=== PATIENT | female | born 1935 | race Caucasian/White ===

== ENCOUNTER 2017-06-26 00:07 | Inpatient (IN) | payer MEDICARE ==
[~2017-06-26] VITALS: Ht 167.6 cm; Wt 76.6 kg
[~2017-06-26 00:07] MED LIST: LEVO50TA PO; TRAM50TA2 PO
[2017-06-26] MEDS ORDERED: MORPHINE SULFATE 4 MG/ML, 1ML IVPush PRN (01:30)
[2017-06-26] MEDS ORDERED: ONDANSETRON 2MG/ML, 2ML IVPush ONE (01:30)
[2017-06-26] MEDS ORDERED: SODIUM CHLORIDE FLUSH 10ML SYR IVF ONE (01:30)
[2017-06-26] MEDS ORDERED: SODIUM CHLORIDE 0.9% 1,000ML IVBOLUS ONE (01:30)
[2017-06-26] MEDS ORDERED: morphine SULFATE 10 MG/ML, 1ML ONE (01:34)
[2017-06-26] MEDS ORDERED: ONDANSETRON 2MG/ML, 2ML ONE (01:34)
[2017-06-26 01:42] LABS: HEMATOCRIT 43.4 % (34.6-47.8); HEMOGLOBIN 14.4 g/dL (11.7-16.4)
[2017-06-26] MEDS ORDERED: CLIN300C8 PO (01:47)
[2017-06-26 01:53] LABS: BLOOD UREA NITROGEN 15 mg/dL (7-18)
[2017-06-26 01:56] LABS: ASPARTATE AMINO TRANSFERASE 25 U/L (15-37)
[2017-06-26] MEDS ORDERED: OMNIPAQUE 350 MG/ML, 100ML BOTTLE ONE (02:14)
[2017-06-26] MEDS ORDERED: CEFTRIAXONE PMX 1GM/50ML 50 ML IV ONE (02:30)
[2017-06-26] MEDS ORDERED: CEFTRIAXONE PMX 1GM/50ML 50 ML ONE (02:44)
[2017-06-26 03:55] VITALS: BP 152/85
[2017-06-26] MEDS ORDERED: PROMETHAZINE 25 MG/ML, 1ML IM PRN (05:30)
[2017-06-26] MEDS ORDERED: ONDANSETRON 2MG/ML, 2ML IVPush PRN (05:30)
[2017-06-26] MEDS ORDERED: METOCLOPRAMIDE 5 MG/ML, 2ML IVPush PRN (05:30)
[2017-06-26] MEDS: SODIUM CHLORIDE 0.9% 1,000 ML IV SCH ×2 (05:45→12:35)
[2017-06-26] MEDS: morphine SULFATE 10 MG/ML, 1ML IVPush PRN ×3 (05:45→19:19)
[2017-06-26 09:00] VITALS: BP 125/77
[2017-06-26] MEDS: LEVOTHYROXINE 100 MCG INJ IVPush SCH (10:27)
[2017-06-26] MEDS: ENOXAPARIN 40 MG/0.4 ML SQ SCH (10:27)
[2017-06-26] MEDS: BISACODYL 10 MG SUPP PR SCH (10:27)
[2017-06-26 12:58] VITALS: BP 126/77
[2017-06-26] MEDS: D5%-LACTATED RINGERS 1,000 ML IV SCH ×2 (14:00→21:25)
[2017-06-26 20:22] VITALS: BP 144/80
[2017-06-26] MEDS: FAMOTIDINE 20 MG/2 ML IVPush SCH (20:47)
[2017-06-27 03:23] VITALS: BP 130/79
[2017-06-27] MEDS: CEFTRIAXONE PMX 1GM/50ML 50 ML IV SCH (04:01)
[2017-06-27] MEDS: D5%-LACTATED RINGERS 1,000 ML IV SCH ×2 (04:11→19:47)
[2017-06-27 04:27] LABS: HEMATOCRIT 36.9 % (34.6-47.8); HEMOGLOBIN 12.2 g/dL (11.7-16.4); WHITE BLOOD COUNT 4.3 x10^3/uL (3.4-10)
[2017-06-27 04:35] LABS: ASPARTATE AMINO TRANSFERASE 22 U/L (15-37); BLOOD UREA NITROGEN 7 mg/dL (7-18)
[2017-06-27 07:35] VITALS: BP 146/79
[2017-06-27] MEDS: ENOXAPARIN 40 MG/0.4 ML SQ SCH (08:51)
[2017-06-27] MEDS: FAMOTIDINE 20 MG/2 ML IVPush SCH (08:51)
[2017-06-27] MEDS: BISACODYL 10 MG SUPP PR SCH (08:52)
[2017-06-27] MEDS: LEVOTHYROXINE 100 MCG INJ IVPush SCH (08:52)
[2017-06-27 13:02] VITALS: BP 118/75
[2017-06-27 19:04] VITALS: BP 135/64
[2017-06-27] MEDS: morphine SULFATE 10 MG/ML, 1ML IVPush PRN (19:47)
[2017-06-28] MEDS: D5%-LACTATED RINGERS 1,000 ML IV SCH ×2 (01:18→13:20)
[2017-06-28 01:22] VITALS: BP 144/82
[2017-06-28] MEDS: CEFTRIAXONE PMX 1GM/50ML 50 ML IV SCH (03:00)
[2017-06-28 04:21] LABS: HEMATOCRIT 35.5 % (34.6-47.8)
[2017-06-28 04:30] LABS: BLOOD UREA NITROGEN 8 mg/dL (7-18)
[2017-06-28 07:07] VITALS: BP 149/70
[2017-06-28] MEDS: FAMOTIDINE 20 MG/2 ML IVPush SCH (10:39)
[2017-06-28] MEDS: ENOXAPARIN 40 MG/0.4 ML SQ SCH (10:40)
[2017-06-28] MEDS: LEVOTHYROXINE 100 MCG INJ IVPush SCH (10:40)
[2017-06-28] MEDS: BISACODYL 10 MG SUPP PR SCH (10:43)
[2017-06-28 12:34] VITALS: BP 127/75
[2017-06-28] MEDS: ERTAPENEM 1 GM in SODIUM CHLORIDE 0.9% 50 ML IV SCH (13:20)
[2017-06-28 19:57] VITALS: BP 165/90
[2017-06-28] MEDS: morphine SULFATE 10 MG/ML, 1ML IVPush PRN (21:34)
[2017-06-29 00:50] VITALS: BP 163/91
[2017-06-29] MEDS: D5%-LACTATED RINGERS 1,000 ML IV SCH (02:43)
[2017-06-29 05:09] LABS: HEMATOCRIT 34.9 % (34.6-47.8); HEMOGLOBIN 11.8 g/dL (11.7-16.4); WHITE BLOOD COUNT 5.9 x10^3/uL (3.4-10)
[2017-06-29 05:16] LABS: BLOOD UREA NITROGEN 6 mg/dL (7-18)
[2017-06-29] MEDS: BISACODYL 10 MG SUPP PR SCH (09:00)
[2017-06-29 09:47] VITALS: BP 175/82
[2017-06-29] MEDS: FAMOTIDINE 20 MG/2 ML IVPush SCH (10:46)
[2017-06-29] MEDS: LEVOTHYROXINE 100 MCG INJ IVPush SCH (10:46)
[2017-06-29] MEDS: ENOXAPARIN 40 MG/0.4 ML SQ SCH (10:47)
[2017-06-29] MEDS: ERTAPENEM 1 GM in SODIUM CHLORIDE 0.9% 50 ML IV SCH (10:48)
[2017-06-29 16:26] VITALS: BP 144/80
[2017-06-29] MEDS ORDERED: POTASSIUM CHLORIDE 20 MEQ TAB.ER.PRT PO ONE (17:30)
[2017-06-29 20:20] VITALS: BP 152/72
[2017-06-30 02:10] VITALS: BP 158/83
[2017-06-30 04:40] LABS: HEMOGLOBIN 12.3 g/dL (11.7-16.4); WHITE BLOOD COUNT 5.5 x10^3/uL (3.4-10)
[2017-06-30 04:46] LABS: BLOOD UREA NITROGEN 7 mg/dL (7-18)
[2017-06-30 07:14] VITALS: BP 146/82
[2017-06-30] MEDS: BISACODYL 10 MG SUPP PR SCH (09:00)
[2017-06-30] MEDS: FAMOTIDINE 20 MG/2 ML IVPush SCH (09:53)
[2017-06-30] MEDS: LEVOTHYROXINE 100 MCG INJ IVPush SCH (09:53)
[2017-06-30] MEDS: ENOXAPARIN 40 MG/0.4 ML SQ SCH (09:53)
[2017-06-30] MEDS: ERTAPENEM 1 GM in SODIUM CHLORIDE 0.9% 50 ML IV SCH (12:49)
[2017-06-30 14:08] VITALS: BP 157/70
[2017-06-30] MEDS: morphine SULFATE 10 MG/ML, 1ML IVPush PRN (19:59)
[2017-06-30 20:00] VITALS: BP 149/71
[2017-07-01 02:00] VITALS: BP 137/66
[2017-07-01 04:51] LABS: HEMATOCRIT 36.4 % (34.6-47.8); HEMOGLOBIN 12.2 g/dL (11.7-16.4); WHITE BLOOD COUNT 5.3 x10^3/uL (3.4-10)
[2017-07-01 04:56] LABS: BLOOD UREA NITROGEN 9 mg/dL (7-18)
[2017-07-01 06:35] VITALS: BP 148/78
[2017-07-01] MEDS: BISACODYL 10 MG SUPP PR SCH (09:00)
[2017-07-01] MEDS: ENOXAPARIN 40 MG/0.4 ML SQ SCH (09:09)
[2017-07-01] MEDS: LEVOTHYROXINE 100 MCG INJ IVPush SCH (09:09)
[2017-07-01] MEDS: FAMOTIDINE 20 MG/2 ML IVPush SCH (09:09)
[2017-07-01] MEDS: ERTAPENEM 1 GM in SODIUM CHLORIDE 0.9% 50 ML IV SCH (11:56)
[2017-07-01 12:30] VITALS: BP 120/62
== END 2017-07-01 13:00 | disposition home or self-care (01) | DRG 389 ==
LOC: ED 01:18 → EDIP 02:52 → 3NW 03:53
PROVIDERS: ADMIT Internal Medicine; ATTEND Internal Medicine
DX: K56.7 Ileus, unspecified (principal); N39.0 Urinary tract infection, site not specified; R78.81 Bacteremia; K56.51 Intestinal adhesions [bands], with partial obstruction; E03.9 Hypothyroidism, unspecified; I10 Essential (primary) hypertension; Z88.0 Allergy status to penicillin; Z16.12 Extended spectrum beta lactamase (ESBL) resistance; Z90.710 Acquired absence of both cervix and uterus
CPT/HCPCS: 36415; 71010; 74000; 74177; 80048; 80053; 81001; 81003; 83690; 85025; 87077; 87086; 87186; 96365; 96374; 96375; J0696; J1335; J1650; J2405; Q9967; J2270; J7030; J7121; S0028

== ENCOUNTER 2017-08-15 05:09 | Day surgery (SDC) | payer MEDICARE ==
[~2017-08-15] VITALS: Ht 167.6 cm; Wt 73.5 kg
[~2017-08-15 05:09] MED LIST changes: +CLIN300C8 PO
[2017-08-15] MEDS ORDERED: LACTATED RINGERS 1,000 ML IV SCH (06:07)
[2017-08-15 06:08] VITALS: BP 144/82
[2017-08-15] MEDS ORDERED: EPINEPHRINE 1 MG/ML, 1ML ONE (06:13)
[2017-08-15] MEDS ORDERED: BUPIVACAINE/PF 0.5% ONE (06:13)
[2017-08-15] MEDS ORDERED: EPINEPHRINE TOPICAL SOLN 1 MG/ML, 30ML ONE (06:13)
[2017-08-15] MEDS ORDERED: LIDOCAINE GEL 2%, 5ML ONE (06:47)
[2017-08-15] MEDS ORDERED: FENTANYL PF 100 MCG/2ML ONE ×2 (06:47→07:28)
[2017-08-15] MEDS ORDERED: LIDOCAINE-MPF 2% ,5ML ONE (06:47)
[2017-08-15] MEDS ORDERED: ONDANSETRON 2MG/ML, 2ML ONE (06:49)
[2017-08-15] MEDS ORDERED: DEXAMETHASONE 4 MG/ML, 1ML ONE (06:49)
[2017-08-15] MEDS ORDERED: CEFAZOLIN 1,000 MG ONE (06:49)
[2017-08-15] MEDS ORDERED: PROPOFOL 10 MG/ML, 20ML ONE (06:49)
[2017-08-15] MEDS ORDERED: OXYMETAZOLINE NASAL SPRAY 0.05%, 15ML ONE (07:16)
[2017-08-15] MEDS ORDERED: PHENYLEPHRINE 10 MG/ML ONE (07:17)
[2017-08-15] MEDS ORDERED: ALBUTEROL/IPRATROPIUM 2.5MG/0.5MG, 3 ML NPPB PRN (08:30)
[2017-08-15] MEDS ORDERED: HYDROmorphone 1 MG/ML, 1ML IV PRN (08:30)
[2017-08-15] MEDS ORDERED: MIDAZOLAM 1 MG/ML, 2ML IV PRN (08:30)
[2017-08-15] MEDS ORDERED: MEPERIDINE/PF 25MG/0.5ML IVPush PRN (08:30)
[2017-08-15] MEDS ORDERED: ONDANSETRON 2MG/ML, 2ML IVPush PRN (08:30)
[2017-08-15] MEDS ORDERED: LABETALOL 5MG/ML, 20ML IV PRN (08:30)
[2017-08-15] MEDS ORDERED: hydrALAzine 20 MG/ML, 1ML IV PRN (08:30)
[2017-08-15] MEDS ORDERED: FENTANYL PF 100 MCG/2ML IV PRN (08:30)
[2017-08-15] MEDS ORDERED: OXYcodone 5 MG/5 ML ORAL.SOL UDC PO PRN (08:30)
[2017-08-15] MEDS ORDERED: EPHEDRINE 50 MG/ML, 1ML IVPush PRN (08:30)
[2017-08-15] MEDS ORDERED: ACETAMINOPHEN 325 MG TABLET PO PRN (08:30)
[2017-08-15] MEDS ORDERED: ACETAMINOPHEN 650 MG/20.3 ML UDC ONE (08:59)
[2017-08-15] MEDS ORDERED: OXYcodone 5 MG/5 ML ORAL.SOL UDC ONE (08:59)
== END 2017-08-15 10:45 ==
LOC: OUT 05:09
PROVIDERS: ATTEND Specialist
DX: K11.5 Sialolithiasis (principal); Z88.0 Allergy status to penicillin; E03.9 Hypothyroidism, unspecified
CPT/HCPCS: 42440; 70490; 88305; 93005; J0171; J0690; J1100; J2370; J2405; J2704; J3010; J3490; J7120

== ENCOUNTER → 2018-06-16 | Outpatient (CLI) | payer MEDICARE | END | disposition home or self-care (01) | LOC: RAD 11:39 | PROVIDERS: ATTEND Family Medicine | DX: M47.893 Other spondylosis, cervicothoracic region (principal) | CPT/HCPCS: 72125 ==

== ENCOUNTER 2019-10-31 17:23 | Emergency (ER) | payer MEDICARE ==
[~2019-10-31] VITALS: Ht 165.1 cm; Wt 79.3 kg
[2019-10-31] MEDS ORDERED: NALOXONE 0.4 MG/ML, 1ML ONE (17:42)
[2019-10-31] MEDS ORDERED: MORPHINE SULFATE 4 MG/ML, 1ML ONE (17:52)
[2019-10-31] MEDS ORDERED: MORPHINE SULFATE 4 MG/ML, 1ML IVPush PRN (18:00)
[2019-10-31] MEDS ORDERED: SODIUM CHLORIDE FLUSH 10ML SYR IVF ONE (18:00)
[2019-10-31 18:18] LABS: BASOPHILS # (AUTO) 0.06 x10^3/uL (0-0.1); BASOPHILS % (AUTO) 1 % (0-1); EOSINOPHILS # (AUTO) 0.13 x10^3/uL (0-0.4); EOSINOPHILS % (AUTO) 2 % (1-7); LYMPHOCYTES # (AUTO) 2.44 x10^3/uL (1-3.4); LYMPHOCYTES % (AUTO) 40 % (22-44); MD NO; MEAN CORPUSCULAR HEMOGLOBIN 30.7 pg (27.0-34.8); MEAN CORPUSCULAR HGB CONC 33.4 g/dL (32.4-35.8); MEAN CORPUSCULAR VOLUME 92.2 fL (80-100); MONOCYTES # (AUTO) 0.52 x10^3/uL (0.2-0.8); MONOCYTES % (AUTO) 9 % (2-9); NEUTROPHILS # (AUTO) 2.91 x10^3/uL (1.8-6.8); NEUTROPHILS % (AUTO) 48 % (42-75); PLATELET COUNT 264 x10^3/uL (130-400); RED BLOOD COUNT 4.48 x10^6/uL (3.82-5.3); RED CELL DISTRIBUTION WIDTH 15.2 % (9.6-15.2)
--- NOTE | 2019-10-31 18:23 | NUR ---
PT CAME TO ED CO OF RIGHT FLANK AND RIGHT HIP PAIN. PT DENIES TRAUMA. DENIES PAINFUL URINATION. UA SENT. BLOOD DRAWN. BLANKET PROVIDED. PT IS IN CT
[2019-10-31 18:28] LABS: ALANINE AMINOTRANSFERASE 27 U/L (12-78); ALBUMIN 3.9 g/dL (3.4-5.0); ANION GAP 9 mmol/L (5-15); CALCIUM 9.2 mg/dL (8.5-10.1); CHLORIDE 111 mmol/L (98-107); CREATININE 0.89 mg/dL (0.55-1.02)
[2019-10-31 18:30] LABS: ALKALINE PHOSPHATASE 85 U/L (45-117); BILIRUBIN,TOTAL 0.2 mg/dL (0.2-1.0)
[2019-10-31 18:31] LABS: MICROSCOPIC AUTO
[2019-10-31 18:35] LABS: CULTURE INDICATED? YES
[2019-10-31 18:54] LABS: HCT (SEDRATE) 41.3 % (34.6-47.8)
[2019-10-31 19:00] VITALS: BP 176/88
--- NOTE | 2019-10-31 19:01 | NUR ---
PT REPORTS PAIN IMPROVEMENT. BUT STILL REPORTS PAIN WHEN SHE MOVES
[2019-10-31] MEDS ORDERED: HYDROcodone/APAP 5/325 TABLET ONE (19:26)
[2019-10-31] MEDS ORDERED: HYDROcodone/APAP 5/325 TABLET PO ONE (19:30)
== END 2019-10-31 19:58 | disposition home or self-care (01) ==
LOC: ED 19:45
DX: M51.16 Intervertebral disc disorders with radiculopathy, lumbar region (principal); N30.00 Acute cystitis without hematuria; R10.2 Pelvic and perineal pain; I10 Essential (primary) hypertension; E03.9 Hypothyroidism, unspecified; Z90.710 Acquired absence of both cervix and uterus; Z90.89 Acquired absence of other organs; Z90.49 Acquired absence of other specified parts of digestive tract
CPT/HCPCS: 36415; 72131; 72192; 80053; 81001; 85025; 85651; 86140; 87077; 87086; 87186; 96374; 99285; J2270